=== PATIENT | male | born 1975 | race Caucasian/White ===

== ENCOUNTER 2021-12-18 18:36 | Emergency (ER) | payer SELFPAY ==
[2021-12-18] MEDS ORDERED: IBUPROFEN600 MG PO (19:00)
[2021-12-18] MEDS ORDERED: CYCLOBENZAPRINE10 MG PO (19:00)
== END 2021-12-18 19:30 | disposition home or self-care (01) ==
LOC: ER1 18:36
DX: M17.11 Unilateral primary osteoarthritis, right knee (principal); F17.210 Nicotine dependence, cigarettes, uncomplicated
CPT/HCPCS: 73564; 96372; 99283; J1100